=== PATIENT | female | born 1975 | race Caucasian/White ===

== ENCOUNTER 2018-10-08 20:13 | Emergency (ER) | payer OTHER ==
[~2018-10-08] VITALS: Ht 172.7 cm; Wt 58.0 kg
[2018-10-08 20:14] VITALS: BP 130/68
== END 2018-10-08 21:34 | disposition home or self-care (01) ==
LOC: ER 20:13
DX: S61.231A Puncture wound without foreign body of left index finger without damage to nail, initial encounter (principal); W46.0XXA Contact with hypodermic needle, initial encounter; Y93.89 Activity, other specified; Y92.89 Other specified places as the place of occurrence of the external cause; Y99.8 Other external cause status
CPT/HCPCS: 99281

== ENCOUNTER 2018-10-15 17:07 | Emergency (ER) | payer OTHER ==
[~2018-10-15] VITALS: Ht 172.7 cm; Wt 68.0 kg
[2018-10-15 17:13] VITALS: BP 124/77
[2018-10-15] MEDS ORDERED: normal saline 1000ML IV soln IVB ONE (17:25)
[2018-10-15] MEDS ORDERED: ketorolac trometh. 30mg/ml inj. IV ONE (17:25)
[2018-10-15] MEDS ORDERED: ondansetron/PF 4mg/2ml inj IV ONE (17:25)
[2018-10-15] MEDS ORDERED: tamsulosin 0.4mg capsule PO ONE (17:25)
[2018-10-15 17:51] LABS: CLARITY,URINE CLEAR (Clear); COLOR,URINE YELLOW (Yellow); GLUCOSE, URINE NEGATIVE (Neg); KETONES,URINE NEGATIVE (Neg); LEUKOCYTE ESTERASE ,URINE LARGE (Neg); NITRITES, URINE NEGATIVE (Neg); OCCULT BLOOD,URINE NEGATIVE (Neg); PH,URINE 6.5 (4.8-8.0); PROTEIN,URINE NEGATIVE (Neg); UROBILINOGEN,URINE 0.2 E.U/dL (0.2-1.0)
[2018-10-15 17:56] LABS: UA COLLECTION TYPE CLN CATCH MIDSTREAM; URINE HCG NEGATIVE (NEG)
[2018-10-15 17:57] LABS: BACTERIA,URINE FEW /HPF (Neg); MUCUS STRANDS FEW /LPF (Neg); RBC,URINE 0-2 /HPF (0-2); SQUAMOUS EPITHELIAL CELL,UR MODERATE /LPF (FEW); WBC,URINE 0-4 /HPF (0-4)
== END 2018-10-15 17:53 | disposition home or self-care (01) ==
LOC: ER 17:08
DX: M54.89 Other dorsalgia (principal); R10.31 Right lower quadrant pain; Z98.51 Tubal ligation status
CPT/HCPCS: 81001; 81025; 87088; 96374; 96375; 99283; J1885; J2405; J7030

== ENCOUNTER 2018-12-02 23:28 | Emergency (ER) | payer OTHER ==
[~2018-12-02] VITALS: Ht 172.7 cm; Wt 70.5 kg
[2018-12-03] MEDS ORDERED: ketorolac trometh. 30mg/ml inj. IV ONE (00:15)
[2018-12-03] MEDS ORDERED: normal saline 1000ml 1,000 ML IV ONE (00:15)
[2018-12-03] MEDS ORDERED: ketorolac tromethamine 15mg/ml inj. IV ONE (00:25)
[2018-12-03 03:00] VITALS: BP 128/64
== END 2018-12-03 03:02 | disposition home or self-care (01) ==
LOC: ER 23:29
DX: N23 Unspecified renal colic (principal); Z98.51 Tubal ligation status
CPT/HCPCS: 96374; 99283; J1885; J7030